=== PATIENT | male | born 1990 | race Caucasian/White ===

== ENCOUNTER 2019-09-02 12:04 | Emergency (ER) | payer OTHER ==
[~2019-09-02] VITALS: Ht 175.3 cm; Wt 62.1 kg
[2019-09-02 12:11] VITALS: BP 138/78
[2019-09-02 12:20] VITALS: BP 138/78
--- NOTE | 2019-09-02 12:55 | ER.PDOC ---
General Chief Complaint: Extremities Stated Complaint: INJURED ARM Time seen by MD: 13:30 Source: patient Exam Limitations: no limitations History of Present Illness Initial Comments Pt states he was doing outside work on a tree and fell out of the tree approx 5 feet off the ground and caught himself with his right wrist. He did not hit his head or neck and there was no LOC. He has several mild abrasions to his right arm and face all healing to active bleeding. He states his wrist is very sore and he is unable move his hand without wrist pain. Occurred: yesterday Where: work Severity: mild Associated Symptoms: loss power Modifying Factors: pain on movement Allergies: Coded Allergies: Penicillins (Verified Allergy, Unknown, Hives, 03/15/15) Home Meds No Active Prescriptions or Reported Meds Past Medical History Medical History: no pertinent history Surgical History: no surgical history Social History Alcohol Use: occassionally Drug Use: none Review of Systems Constitutional: no symptoms reported EENTM: no symptoms reported Respiratory: no symptoms reported Cardiovascular: no symptoms reported Gastrointestinal: no symptoms reported Genitourinary: no symptoms reported Musculoskeletal: joint pain (right wrist pain) Skin: no symptoms reported Psychiatric/Neurological: no symptoms reported Physical Exam General Appearance: Alert, No Apparent Distress Hand: nml inspection Wrist: tenderness (right wrist), tenderness snuff box (right hand), pain w/axial thumb load (right hand), swelling (right wrist) Forearm/Elbow: nml inspection Arm/Shoulder: nml inspection Neuro/Vasc/Tendon: sensation nml, motor nml, no vascular compromise Skin: warm/dry Head/ENT: nml inspection, pharynx nml Neck/Back: nml inspection, non-tender Respiratory: chest non-tender, breath sounds nml CVS: heart sounds normal Abdomen: non-tender Results/Orders Results/Orders Orders - MICHAEL GUERRERO NP Xr Wrist Rt (09/02/19 12:25) Xr Hand Rt (09/02/19 12:25) Vital Signs Date Time Temp Pulse Resp B/P (MAP) Pulse Ox O2 Delivery O2 Flow Rate FiO2 09/02/19 12:20 98.2 84 16 138/78 (98) 98 09/02/19 12:20 98.2 84 16 138/78 (98) 98 09/02/19 12:11 98.2 84 16 09/02/19 12:11 98.2 84 17 98 Progress Progress Xrays were negative for fracture of the hand or wrist will ryne wrap the right hand and wrist continue RICE therapy at home. Departure Time of Disposition: 13:37 Disposition: 01 HOME, SELF-CARE Impression: Primary Impression: Right wrist sprain Condition: Stable Patient Instructions: RICE - Routine Care for Injuries, [id number] Referrals: PCP,UNKNOWN (PCP) PRIMARY CARE PROVIDER Additional Instructions: Follow up with your primary care provider in the next 1-2 days. Return to ER if symptoms worsen Continue to take Ibuprofen and Tylenol as directed for pain Scripts No Active Prescriptions or Reported Meds Duration or Time Spent with Pa: 20 min MICHAEL GUERRERO NP Sep 02, 2019 12:55
--- NOTE | 2019-09-02 13:14 | DIREP ---
PROCEDURE:XRAY HAND MIN 3 VW-RT COMPARISON:None. INDICATIONS:fall. Pain. FINDINGS: BONES:Normal. JOINTS:Normal. SOFT TISSUES:Normal. OTHER:No additional findings. CONCLUSION:Normal examination. Dictated by: Cj Kramer MD on 09/02/2019 at 01:10 PM
--- NOTE | 2019-09-02 13:28 | DIREP ---
PROCEDURE:XRAY WRIST MIN 3VW-RT COMPARISON:[facility], , XRAY HAND MIN 3 VW-RT, 09/02/2019, 12:53 PM. INDICATIONS:fall FINDINGS: BONES:Normal. JOINTS:Normal. SOFT TISSUES:Normal. OTHER:No additional findings. CONCLUSION:Normal examination. Dictated by: Porter Hansen M.D. on 09/02/2019 at 01:26 PM
== END 2019-09-02 13:45 | disposition home or self-care (01) ==
LOC: ER 12:04
DX: S63.501A Unspecified sprain of right wrist, initial encounter (principal); Z88.0 Allergy status to penicillin; W14.XXXA Fall from tree, initial encounter; Y93.89 Activity, other specified; Y92.89 Other specified places as the place of occurrence of the external cause; Y99.0 Civilian activity done for income or pay
CPT/HCPCS: 99284; 73110-RT; 73130-RT

== ENCOUNTER 2022-01-01 10:30 | Emergency (ER) | payer SELFPAY ==
[~2022-01-01] VITALS: Ht 175.3 cm; Wt 65.8 kg
[2022-01-01 10:32] VITALS: BP 136/65
--- NOTE | 2022-01-01 10:38 | NUR ---
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
[2022-01-01 10:59] LABS: BASOPHIL # 0.1 10^3/uL (0.0-0.1); BASOPHIL % 0.8 % (0.0-0.2); EOSINOPHIL # 0.1 10^3/uL (0.0-0.2); EOSINOPHIL % 1.2 % (0.0-5.0); LYMPHOCYTES # 1.48 10^3/uL1 (1.0-4.8); LYMPHOCYTES % 20.2 % (24.0-44.0); MEAN CORP HGB 32.4 pg (26-34); MONOCYTES # 0.5 10^3/uL (0.3-0.8); MONOCYTES % 6.4 % (5.0-12.0); NEUTROPHIL # 5.2 10^3/uL (1.8-7.7); NEUTROPHILS % 71.3 % (41.0-85.0); PLATELET COUNT 352 10^3/uL (150-400); RED CELL DISTRIBUTION WIDTH 11.8 % (11.5-14.5)
[2022-01-01 11:15] LABS: CARBON DIOXIDE 29.9 mmol/L (20.0-32)
[2022-01-01 12:13] LABS: BILIRUBIN,URINE NEGATIVE (NEGATIVE); UROBILINOGEN,URINE 0.2 E.U./dL (0.2)
--- NOTE | 2022-01-01 12:14 | ER.PDOC ---
General Chief Complaint: Abdomen Pain Stated Complaint: ABD PAIN Time seen by MD: 11:00 Source: patient Exam Limitations: no limitations History of Present Illness Initial Comments Abdominal pain since this morning. Patient has nausea and vomiting but no diarrhea. No fever or chills. Severity/Quality: moderate, sharpness Radiation: no radiation Associated Symptoms: nausea/vomiting Exacerbated by: nothing Relieved By: nothing Allergies: Coded Allergies: Penicillins (Verified Allergy, Unknown, Hives, 03/15/15) Home Meds No Active Prescriptions or Reported Meds Vital Signs First Vital Signs Date Time Temp Pulse Resp B/P (MAP) Pulse Ox O2 Delivery O2 Flow Rate FiO2 01/01/22 10:32 97.6 56 18 99 01/01/22 10:32 136/65 (88) Room Air* 0 21 Last Vital Signs Date Time Temp Pulse Resp B/P (MAP) Pulse Ox O2 Delivery O2 Flow Rate FiO2 01/01/22 12:23 97.6 90 18 128/62 (84) 99 Room Air* 0 21 Past Medical History Medical History: no pertinent history Surgical History: no surgical history Family History Significant Family History: no pertinent family hx Social History Smoking: non-smoker Alcohol Use: none Drug Use: none Constitutional: no symptoms reported EENTM: no symptoms reported Respiratory: no symptoms reported Cardiovascular: no symptoms reported Gastrointestinal: see HPI All Other Systems: Reviewed and Negative Physical Exam General Appearance: No Apparent Distress, WD/WN HEENT: PERRL/EOMI, Normal ENT Inspection, TMs Normal, Pharynx Normal Neck: Non-Tender, Full Range of Motion, Supple, Normal Inspection Respiratory: chest non-tender, lungs clear, normal breath sounds, no respiratory distress, no accessory muscle use Cardiovascular: Normal Peripheral Pulses, Regular Rate, Rhythm, No Edema, No Gallop, No JVD, No Murmur Gastrointestinal: Normal Bowel Sounds, No Organomegaly, No Pulsatile Mass, Tenderness (Lower abdomen) Back: Normal Inspection, No CVA Tenderness, No Vertebral Tenderness Extremities: Normal Range of Motion, Non-Tender, Normal Inspection, No Pedal Edema, No Calf Tenderness, Normal Capillary Refill, Pelvis Stable Neurologic/Psychiatric: meat packer II-XII NML as Tested, No Motor/Sensory Deficits, Alert, Normal Mood/Affect, Oriented x 3 Skin: Normal Color, Warm/Dry Lymphatic: No Adenopathy Results/Orders Results/Orders Orders - ROSALINDA,MATHEUS Alvarez MD Cbc With Auto Diff (01/01/22 10:46) Comprehensive Metabolic Panel (01/01/22 10:46) Lipase (01/01/22 10:46) Helicobacter Pylori (01/01/22 10:46) PT (01/01/22 10:46) Partial Thromboplastin Time. (01/01/22 10:46) Urinalysis (01/01/22 10:46) Ct Abd/Pel With Iv Contrast (01/01/22 11:26) Vital Signs Date Time Temp Pulse Resp B/P (MAP) Pulse Ox O2 Delivery O2 Flow Rate FiO2 01/01/22 12:23 97.6 90 18 128/62 (84) 99 Room Air* 0 21 01/01/22 10:32 97.6 56 18 01/01/22 10:32 97.6 56 18 136/65 (88) 99 Room Air* 0 21 01/01/22 10:32 97.6 56 18 99 Laboratory Tests Test 01/01/22 10:49 01/01/22 12:03 White Blood Count 7.3 10^3/uL (4.5-11.0) Red Blood Count 4.79 10^6/uL (4.50-5.90) Hemoglobin 15.5 g/dL (13.9-16.3) Hematocrit 45.3 % (37.0-53.0) Mean Corpuscular Volume 94.6 fL (78-100) Mean Corpuscular Hemoglobin 32.4 pg (26-34) Mean Corpuscular Hemoglobin Concent 34.2 g/dL (33-36.5) Red Cell Distribution Width 11.8 % (11.5-14.5) Platelet Count 352 10^3/uL (150-400) Mean Platelet Volume 9.7 fL (7.8-11.0) Neutrophils (%) (Auto) 71.3 % (41.0-85.0) Lymphocytes (%) (Auto) 20.2 % (24.0-44.0) L Monocytes (%) (Auto) 6.4 % (5.0-12.0) Neutrophils # (Auto) 5.2 10^3/uL (1.8-7.7) Lymphocytes # (Auto) 1.48 10^3/uL1 (1.0-4.8) Monocytes # (Auto) 0.5 10^3/uL (0.3-0.8) Absolute Immature Granulocyte (auto 0.01 10^3 u/L (0-2) Absolute Eosinophils (auto) 0.1 10^3/uL (0.0-0.2) Immature Granulocytes % 0.10 % (0.00-0.50) Eosinophils % 1.2 % (0.0-5.0) Basophils % 0.8 % (0.0-0.2) H Basophils # 0.1 10^3/uL (0.0-0.1) Prothrombin Time 10.4 SEC (9.1-11.5) Prothrombin Time INR (Non-Therap) 1.0 Activated Partial Thromboplast Time 23.6 SEC (22.5-33.1) Sodium Level 137 mmol/L (132-145) Potassium Level 4.2 mmol/L (3.6-5.2) Chloride Level 98.0 mmol/L (96-109) Carbon Dioxide Level 29.9 mmol/L (20.0-32) Anion Gap 13.3 Blood Urea Nitrogen 12 mg/dL (7-18) Creatinine 0.83 mg/dL (0.59-1.40) Estimated GFR () 132.5 (>/=60) Est GFR (CKD-EPI)(Non-Afr Panamanian) 109.5 (>/=60) BUN/Creatinine Ratio 14.0 Glucose Level 102 mg/dL (70-110) Calcium Level 9.1 mg/dL (8.4-10.5) Total Bilirubin 0.3 mg/dL (0.2-1.0) Aspartate Amino Transferase (AST) 20 U/L (0-35) Alanine Aminotransferase (ALT) 41 U/L (12-78) Alkaline Phosphatase 72 U/L (50-136) Total Protein 7.4 g/dL (6.4-8.2) Albumin 4.3 g/dL (3.4-5.0) Globulin 3.1 Albumin/Globulin Ratio 1.387 Lipase 66 U/L (114-286) L Helicobacter pylori Screen POSITIVE (NEGATIVE) Urine Collection Type RANDOM Urine Color YELLOW Urine Appearance CLEAR Urine Bilirubin NEGATIVE (NEGATIVE) Urine Ketones NEGATIVE (NEGATIVE) Urine Specific [place] 1.015 (1.005-1.030) Urine pH 7.5 (4.5-8.0) Urine Protein NEGATIVE (NEGATIVE) Urine Urobilinogen 0.2 E.U./dL (0.2) Urine Nitrate NEGATIVE (NEGATIVE) Urine Leukocyte Esterase NEGATIVE (NEGATIVE) Urine Glucose (Auto)(UA) NEGATIVE (NEGATIVE) Urine Blood NEGATIVE (NEGATIVE) Progress Progress CT abdomen/pelvis: No explanation for patient's pain other than for large amount of stool in the colon. Urinalysis is normal. H. pylori is positive but patient's pain is in the lower abdomen. He is not tender in the epigastric region. He will not be treated for being positive for H. pylori based on negative clinical presentation for H Pylori infection. CBC is unremarkable. Chemistry is normal. Lipase is unremarkable. Appendix is normal. Patient received Zofran and her nausea has resolved. ER DEPART Departure Time of Disposition: 12:34 Disposition: 01 HOME / SELF CARE / HOMELESS Impression: Primary Impression: Constipation Additional Impressions: Nausea & vomiting Abdominal pain Condition: Improved Referrals: PCP,UNKNOWN (PCP) PRIMARY CARE PROVIDER Additional Instructions: Magnesium citrate Follow-up with PCP in 2 to 3 days Return to ED if worsening or concerns Scripts No Active Prescriptions or Reported Meds Duration or Time Spent with Pa: 60 min Problem Qualifiers Primary Impression: Constipation Constipation type: unspecified constipation type Qualified Codes: K59.00 - Constipation, unspecified Additional Impressions: Nausea & vomiting Vomiting type: unspecified Qualified Codes: R11.2 - Nausea with vomiting, unspecified Abdominal pain Abdominal location: unspecified location Qualified Codes: R10.9 - Unspecified abdominal pain MATHEUS TELLEZ MD Jan 01, 2022 12:14
--- NOTE | 2022-01-01 12:19 | DIREP ---
PROCEDURE:CT ABD/PELVIS W/ CONTRAST TECHNIQUE:Following the intravenous administration of contrast material, venous phase cuts were obtained through the abdomen and pelvis. The images were viewed at lung and soft tissue settings. Sagittal and coronal reconstructions are provided. COMPARISON:None. INDICATIONS:Right abdominal pain FINDINGS: LOWER CHEST:The lung bases are clear. LIVER:Normal. BILIARY:Normal. PANCREAS:Normal. SPLEEN:Normal. URINARY TRACT:Normal. No renal or ureteral stones. ADRENALS:Normal. AORTA/VASCULAR:Normal. RETROPERITONEUM:Normal. BOWEL/MESENTERY:Large amount of stool in the colon. No obstruction. Normal appendix series 2, image 56 and series [id number] images [id number]. ABDOMINAL WALL:Normal. PELVIS:Normal. BONES:Normal. OTHER:Normal. CONCLUSION:No explanation for patient's pain other than for large amount of stool in the colon. Dictated by: Antelmo Smith M.D. on 01/01/2022 at 12:13 PM
[2022-01-01 12:23] VITALS: BP 128/62
[2022-01-01] MEDS ORDERED: ZOFRAN IV STA (12:36)
[2022-01-01] MEDS ORDERED: ZOFRAN ONE (12:37)
== END 2022-01-01 12:50 | disposition home or self-care (01) ==
LOC: ER 10:30
DX: K59.00 Constipation, unspecified (principal); R11.2 Nausea with vomiting, unspecified; R10.30 Lower abdominal pain, unspecified; Z88.0 Allergy status to penicillin
CPT/HCPCS: 99285; 74177; 96374; 81003; 80053; 85025; 86677; 36415; 83690; 85610; 85730; J2405; Q9965